=== PATIENT | male | born 2005 | race Caucasian/White ===

== ENCOUNTER 2025-05-20 16:50 | Inpatient (IN) | payer OTHER, SELFPAY ==
--- NOTE | ~2025-05-20 | XR_ITS ---
EXAMINATION: XR KNEE, RIGHT CLINICAL INFORMATION: Fall with pain COMPARISON: None available. TECHNIQUE: Two views of the right knee. FINDINGS: No fracture, dislocation, or suspicious bone lesion. There is normal alignment. Joint spaces are maintained. There is a suprapatellar joint effusion. Soft tissues appear normal. XR/XR knee RT 2V IMPRESSION: 1. No acute bony abnormalities. Suprapatellar joint effusion. Electronically signed by: Matthew Cary MD 05/21/2025 01:38 PM EDT
[2025-05-20 18:12] VITALS: BP 176/88; PULSE 110; RESP 16; TEMP 37.3; O2SAT 99
[2025-05-20 18:14] VITALS: BP 156/84
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
--- OUTSIDE RECORDS SUMMARY | 2025-05-20 19:35 | XMS_ITS | Clinical Summary ---
Author Organization [facility] 's Address [address] [place] [address] Care Team Providers Care Inspector Salvage Name Role Phone Cecilia Dunn MD Primary Care Provider Source Comments Please note that some or all of the patient's information could have additional privacy protections. State laws allow health care providers to render certain types of treatment to minors without parental consent. Please do not assume that this information can be shared solely by obtaining just the consent of the patient's parent/guardian. Please determine if all or part of the patient's care was rendered without parent/guardian involvement. And, if so, obtain the minor's consent prior to disclosure.[facility] Allergies No known active allergies Medications ibuprofen (MOTRIN) 400 MG tablet TAKE 1 TABLET BY MOUTH EVERY 6 HOURS NEEDED FOR MODERATE TO SEVERE PAIN, TAKE WITH FOOD 12/23/2020 Active Active Problems No known active problems Family History Medical History Relation Name Comments No Known Problems Father Diabetes type I Maternal Grandmother No Known Problems Mother Relation Name Status Comments Father Maternal Grandmother Mother Social History Tobacco Use Types Packs/Day Years Used Date Smoking Tobacco: Never Smokeless Tobacco: Never Other Needs Answer Date Recorded Anything else about your child you'd like help w ith? Not on file 04/12/2023 Share good news about positive changes: Not on f ile 04/12/2023 Sex and Gender Information Value Date Recorded Sex Assigned at Not on file Legal Sex Male 1:44 PM EST Gender Identity Not on file Sexual Orientation Not on file Last Filed Vital Signs Vital Sign Reading Time Taken Comments Blood Pressure 120/71 03/20/2021 12:00 PM EDT Pulse 72 03/20/2021 12:00 PM EDT Temperature - - Respiratory Rate - - Oxygen Saturation 96% 03/20/2021 12: 00 PM EDT Inhaled Oxygen Concentration - - Weight 72.9 kg (160 lb 11.5 oz) 021 12:00 PM EDT Height 172 cm (5' 7.72 ) 03/20/2021 12: 00 PM EDT Body Mass Index 24.64 03/20/2021 12:00 PM EDT Plan of Treatment Health Maintenance Due Date Last Done Comments DTaP/TDAP/TD VACCINES (1 - Tdap) 2012 ADOLESCENT HIV SCREENING 2018 COVID-19 Vaccine (2023-2 5 season) 2025 INFLUENZA (#1) 2025 NIRSEVIMAB VACCINES UNDER 8 MONTHS Aged Out No longer eligible based on patient's age to complete this topic Insurance [facility] MEDICAID Care Teams Inspector Salvage Relationship Specialty Start Date End Date Cecilia Dunn MD [facility] [place] [address] PCP - General 09/06/20
--- NOTE | 2025-05-21 | ECG_ITS ---
Test Reason : SYNCOPE Blood Pressure : */* mmHG Vent. Rate : 103 BPM Atrial Rate : 103 BPM P-R Int : 130 ms QRS Dur : 80 ms QT Int : 358 ms P-R-T Axes : 74 83 60 degrees QTcB Int : 468 ms Sinus tachycardia Otherwise normal ECG No previous ECGs available Referred By: Yudi Ibrahim Electronically Signed By: KOURTNEY BUCHANAN MD
[2025-05-21 06:16] VITALS: BP 138/93; PULSE 143; RESP 20; TEMP 36.3
[2025-05-21 06:31] VITALS: BP 131/79; PULSE 132; RESP 20; TEMP 36.7
[2025-05-21] MEDS: diazePAM 10 MG/2 ML CARTRIDGE 5 MG IM (06:37)
[2025-05-21 06:45] VITALS: BP 129/70; PULSE 137; RESP 20; TEMP 36.8
[2025-05-21 07:01] VITALS: BP 124/84; PULSE 132; RESP 18; TEMP 36.9; O2SAT 98
--- NOTE | 2025-05-21 07:21 | HO.PSYEVENT ---
Documented by User: Zenaida Castaneda APRN 05/21/25 07:24 Event Note Date of Service: 05/21/25 Psych Restraint Event Note: painter sign maintenance note: Notified by Lisa Grant RN that pt required restraint chair to maintain safety which was initiated at 0610. Medications were requested. Haldol 10 mg IM, Valium 5 mg IM and Diphenhydramine 50 mg IM ordered and administered per team at 0637 Time Spent With Patient Time: Total time managing care of this patient today ____ minutes. Documented by User: David Davies MD 05/23/25 15:53 Event Note Date of Service: 05/23/25
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
--- NOTE | 2025-05-21 08:14 | P.CONHOSP_ITS ---
History of Present Illness Data of Consult Service Date: 05/21/25 Primary Care Provider: Cecilia Dunn MD [facility] Reason for consult: Medical consult 20-year-old male with schizophrenia presented to the [facility] Emergency Department with his parents due to inability to care for himself paranoia, pressured speech and behavioral changes. Mild leukocytosis, no anemia, no electrolyte imbalances, TSH within normal limits. Tox screen positive for benzos, marijuana. EKG demonstrates sinus tachycardia with a right atrial enlargement. Patient required IM sedation due to agitated behavior in the ED at [facility]. Earlier this morning patient's agitated and required restraint chair for safety, he received Haldol 10 mg IM, Valium 5 mg IM and diphenhydramine 50 mg IM at 06:30 this morning. At time of exam he is sedated in bed. We will attempt to examine him when he is more alert. Review of Systems Review of Systems: Unable due to sedation PMFSH Social History Household Members: Family Housing: Apartment Do you presently have visiting nurse or other home services: No Patient Tobacco Use Status: Never used Tobacco Currently Displaying Signs/Symptoms of Drug Intoxication Withdrawal: No Have you been hit, kicked, punched, or otherwise hurt by someone within the past year? If so, by whom?: No Do you feel safe in your current relationship?: No Current Relationship Is there a partner from a previous relationship who is making you feel unsafe now?: No Are you made to feel afraid or neglected: No Advance Directives: No Advance Directives Information Provided: No Do you have thoughts of harming others: None Do you have a plan to hurt others: No Plan Recently lost weight without trying: No Eating poorly because of decreased appetite: No Nutrition Risks: No Nutritional Risk Poor oral hygiene: No service: No Sexual orientation: Straight/Heterosexual Meds Allergies Allergy/AdvReac Type Severity Reaction Status Date / Time Unable to Assess Allergy Verified 05/20/25 19:43 Active Medications: Current Medications Acetaminophen (Acetaminophen 325 Mg Tablet) 650 mg PO Q6H PRN PRN Reason: Headache/Pain, Scale 1-10 Al Hydroxide/Mg Hydroxide (Magnesium Hydrox/Alum Hydrox 30 Ml Oral.Susp) 30 ml PO Q6H PRN PRN Reason: Heartburn/Nausea Hydroxyzine HCl (Hydroxyzine Hcl 25 Mg Tablet) 25 mg PO Q6H PRN PRN Reason: mild anxiety Magnesium Hydroxide (Milk Of Magnesia 30 Ml Oral.Susp) 30 ml PO DAILY PRN PRN Reason: Constipation Trazodone HCl (Trazodone Hcl 50 Mg Tablet) 50 mg PO BEDTIME MRX1 PRN PRN Reason: Insomnia Home Medications ?Medication ?Instructions ?Recorded ?Confirmed ?Last Taken ?Type No Known Home Meds 05/20/25 05/20/25 Un known History Physical Exam Vital Signs and Narrative: Vital Signs: Last Vital Signs Temp 98.4 F 05/21/25 07:01 Pulse 132 H 05/21/25 07:01 Resp 18 05/21/25 07:01 BP 124/84 05/21/25 07:01 Pulse Ox 99 05/20/25 18:12 O2 Del Method Room Air 05/20/25 18:12 CONST: Sedated in NAD. Well nourished HEENT: Normocephalic, atraumatic RESP: Respiratory rate even and regular HEART: Regular rate and rhythm GI: Not performed : Not performed SKIN: Color within normal limits, no visible lesions or rashes NEURO: Sedated PSYCH: Sedated Assessment and Plan (1) Schizophrenia: Status: Acute Plan 20-year-old with past medical history of schizophrenia who presented to the ED via EMS for worsening behaviors including paranoia and poor sleep. Admitted for further care Schizophrenia with decompensation Treatment per psychiatric team Right atrial enlargement noted on EKG at outside hospital/tachycardia Echo ordered to evaluate Patient agitated at recording of last vital signs Thank you for allowing me to participate in the care of this patient. Will follow with you, please notify medical provider with any changes in condition or concerns.
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
[2025-05-21 12:15] VITALS: BP 143/76; PULSE 117; RESP 18
--- NOTE | 2025-05-21 14:45 | PM.EVENT ---
Event Note Date of Service: 05/21/25 Event Note: Notified by nursing that patient reported that his right leg gave out. Fell to the ground witnessed by nursing. Vitals were stable at the time. On exam his right knee is slightly swollen and bruised suprapatellar region. At the time of exam patient denies any pain. Right knee is in alignment, his gait is steady. No tenderness with palpation at the meniscus, patellar tendon, tibial tuberosity or medial or lateral knee. Full range of motion. X-ray negative for any fracture, joint effusion noted that suprapatellar area. Suspect that patient may have passed out per nursing parts department supervisor. We will order EKG to rule out any abnormalities, CBC and BMP. On exam patient denies any dizziness, headaches, denies head strike, denies chest pain, shortness of breath or any other concerning symptoms. Offer Tylenol as needed ice p.r.n. continue to monitor and notify medical team with any changes. Time Spent With Patient Time: Total time managing care of this patient today ____ minutes.
[2025-05-21 17:52] LABS: MANUAL DIFF FLAG NO
[2025-05-21 17:54] LABS: Hematocrit 44.5 % (42.0-52.0); Hemoglobin 15.4 g/dl (14.0-18.0); Imm Gran Abs Auto 0.05 X10*3/uL (0.00-0.03); Imm Gran Pct Auto 0.4 % (0.0-0.4); Lymphocytes Absolute Auto 3.7 X10*3/uL (1.2-4.9); Mean Corpuscular HGB Conc 34.6 g/dl (31.0-36.0); Mean Corpuscular Hemoglobin 29.4 pg (27.0-33.0); Mean Corpuscular Volume 85.1 fL (80.0-98.0); NRBC Abs Auto 0.000 X10*3/uL (0.0-0.012); NRBC Pct Auto 0.0 /100WBC (0.0-0.2); Platelet Count 249 X10*3/uL (160-400); Red Blood Count 5.23 X10*6/uL (4.60-5.80); White Blood Count 14.3 X10*3/uL (4.8-10.8)
[2025-05-21 18:13] LABS: Alanine Aminotransferase 30 U/L (0-40); Albumin Level 5.1 g/dL (3.5-5.0); Alkaline Phosphatase 63 U/L (39-117); Anion Gap 15 (12-20); Aspartate Amino Transferase 63 U/L (5-37); Blood Urea Nitrogen 14 mg/dL (9-16); Calcium 9.7 mg/dL (8.4-10.2); Carbon Dioxide 28 mmol/L (22-29); Chloride 103 mmol/L (96-108); Estimated Glomerular Filt Rate > 60; Potassium 3.8 mmol/L (3.3-5.1); Sodium 142 mmol/L (135-145); Total Protein 8.3 g/dL (6.5-8.0)
[2025-05-21 18:21] LABS: Cholesterol 171 mg/dL (<200); HDL Cholesterol 32 mg/dL (>40); Magnesium 2.4 mg/dL (1.6-2.6); Triglycerides 124 mg/dL (<150)
[2025-05-21 18:35] LABS: Free T4 (Free Thyroxine) 1.37 ng/dL (0.71-1.85); Thyroid Stimulating Hormone 1.52 uIU/mL (0.32-4.0)
[2025-05-21 18:54] LABS: Folate 10.9 ng/mL (> or = 4.0); Vitamin B12 335 pg/mL (200-900)
[2025-05-21 19:22] VITALS: BP 138/85; PULSE 113; RESP 16; TEMP 36.1; O2SAT 100
--- NOTE | 2025-05-22 04:59 | P.F2F_ITS ---
Service Date Service Date: 05/22/25 Encounter Date of encounter: 05/21/25 (6:15am) Encounter: Patient was agitated. Patient was placed on physical restraints. On examination patient denies any complaints. Physical exam benign. Patient was examined at 06:15am Reasons for Services Signs and symptoms assessed: Patient is asymptomatic. Sitting in the chair restrained. Calm and cooperative. Denies any physical complaints. Homebound: Leaving the home is medically contraindicated at this time without the asist of a device and/or another person due th the listed conditions above and below. Reason homebound: other Certification: Based on the above findings, I certify that this patient is confined to the home and needs intermittent shelter care, physical therapy and/or speech therapy, or continues to need occupational therapy. The patient is under my care, and I have initiated the establishment of the plan of care. The patient will be followed by a physician who will periodically review the plan of care. Time Spent With Patient Time: Total time managing care of this patient today ____ minutes.
[2025-05-22 08:00] VITALS: BP 138/88; PULSE 99; RESP 18; TEMP 36.9; O2SAT 98
--- NOTE | 2025-05-22 15:16 | HO.PSYCHPN ---
Subjective Subjective Date of Service: 05/22/25 Reason For Visit: schizophrenia Subjective Notes: Conditional Voluntary Interim History: Refused Depakote last night. Continues with rapid and pressured speech. He reports feeling anxious. Per nursing, slept 3 hours last night. Encouraged to be medication compliant. denies SI/HI/VH/AH. Continue tx plan. Medication Compliance: No Side effects from medications: No Attending Groups: Intermittent Mental Status Exam Mental Status Exam Narrative: Pt is alert and oriented; behavior is cooperative and calm; dressed in casual attire; mood is described as anxious ; eye contact appropriate; Speech is rapid rate, normal volume and pressured; thought process is organized; Thought content is on tx; paranoid; denies SI/HI/VH/AH. Diagnostics Vital Signs (24Hr): Vital Signs - 24 hr 05/21/25 19:22 05/22/25 08:00 Temperature 97.0 F 98.5 F Pulse Rate 113 H 99 Respiratory Rate 16 18 Blood Pressure 138/85 138/88 Pulse Oximetry 100 98 Oxygen Delivery Method Room Air Room Air Labs 05/21/25 17:43 05/21/25 17:43 Labs: Laboratory Results - last 48 hr 05/21/25 17:43 WBC 14.3 H RBC 5.23 Hgb 15.4 Hct 44.5 MCV 85.1 MCH 29.4 MCHC 34.6 RDW 12.5 Plt Count 249 MPV 11.5 Immature Gran % (Auto) 0.4 Neut % (Auto) 65.1 Lymph % (Auto) 25.6 Mchenry % (Auto) 7.5 Eos % (Auto) 1.0 Baso % (Auto) 0.4 Lymph # (Auto) 3.7 Mchenry # (Auto) 1.1 Eos # (Auto) 0.1 Baso # (Auto) 0.1 Abs Immat Gran (auto) 0.05 H Absolute Neuts (auto) 9.3 H Absolute Nucleated RBC 0.000 Nucleated RBC % (auto) 0.0 Sodium 142 Potassium 3.8 Chloride 103 Carbon Dioxide 28 Anion Gap 15 BUN 14 Creatinine 1.29 Estim Creat Clear Calc TNP Estimated GFR > 60 Random Glucose 75 Estimat Average Glucose 94 Hemoglobin A1c % 4.9 Calcium 9.7 Magnesium 2.4 Total Bilirubin 0.9 AST 63 H ALT 30 Alkaline Phosphatase 63 Total Protein 8.3 H Albumin 5.1 H Triglycerides 124 Cholesterol 171 LDL Cholesterol, Calc 115 H HDL Cholesterol 32 L Vitamin B12 335 Folate 10.9 TSH 1.52 Free T4 1.37 Imaging Radiology Impressions: ITS Impressions Knee X-Ray 05/21/25 13:15 IMPRESSION: 1. No acute bony abnormalities. Suprapatellar joint effusion. Electronically signed by: Matthew Cary MD 05/21/2025 01:38 PM EDT RP Medications Medications Current Medications Acetaminophen (Acetaminophen 325 Mg Tablet) 650 mg PO Q6H PRN PRN Reason: Headache/Pain, Scale 1-10 Last Admin: 05/22/25 03:40 Dose: 650 mg Al Hydroxide/Mg Hydroxide (Magnesium Hydrox/Alum Hydrox 30 Ml Oral.Susp) 30 ml PO Q6H PRN PRN Reason: Heartburn/Nausea Divalproex Sodium (Divalproex Sodium Er 500 Mg Tab.Er.24h) 500 mg PO BEDTIME ANJEL Last Admin: 05/21/25 22:46 Dose: Not Given Hydroxyzine HCl (Hydroxyzine Hcl 25 Mg Tablet) 25 mg PO Q6H PRN PRN Reason: mild anxiety Last Admin: 05/21/25 12:34 Dose: 25 mg Lorazepam (Lorazepam 1 Mg Tablet) 1 mg PO TID PRN PRN Reason: Anxiety Last Admin: 05/21/25 12:34 Dose: 1 mg Magnesium Hydroxide (Milk Of Magnesia 30 Ml Oral.Susp) 30 ml PO DAILY PRN PRN Reason: Constipation Olanzapine (Olanzapine 5 Mg Tablet) 5 mg PO Q4H PRN PRN Reason: agitation Trazodone HCl (Trazodone Hcl 50 Mg Tablet) 50 mg PO BEDTIME MRX1 PRN PRN Reason: Insomnia Allergies Allergies Allergy/AdvReac Type Severity Reaction Status Date / Time Unable to Assess Allergy Verified 05/20/25 19:43 Assessment & Plan Assessment & Plan (1) Brief psychotic disorder: Status: Acute Code(s): F23 - Brief psychotic disorder Plan Patient is a 20-year-old male with no psychiatric hx, who presented to ER with his parents, due to inability to care for self, poor sleep, and increased paranoia. Plan: CV 15 minute safety checks Obtain collateral Start: Depakote ER 500mg PO bedtime Encourage groups Referral to outpatient psychiatric providers Discharge planning 05/22: Refused Depakote last night. Continues with rapid and pressured speech. He reports feeling anxious. Per nursing, slept 3 hours last night. Encouraged to be medication compliant. denies SI/HI/VH/AH. Continue tx plan. Patient educated on: diagnosis and medication risk/benefits Reason for continued inpatient stay Substantial Risk for: med/psych decompensation Time Spent With Patient Time: Total time managing care of this patient today _15___ minutes.
--- NOTE | 2025-05-22 17:13 | PC.NURSE ---
Pt signed a Three Day Notice on Saturday05/22/2025 up on Saturday05/26/2025.
[2025-05-22 19:42] VITALS: BP 161/85; PULSE 105; RESP 16; TEMP 37.8; O2SAT 91
[2025-05-22 22:00] VITALS: TEMP 36.7
[2025-05-23 08:00] VITALS: BP 153/99; PULSE 117; RESP 18; TEMP 36.7; O2SAT 99
[2025-05-23 08:31] VITALS: BP 153/99; PULSE 117; RESP 18; TEMP 36.7; O2SAT 99
--- NOTE | 2025-05-23 13:00 | P.PNPSI_ITS ---
Subjective Subjective Date of Service: 05/23/25 Reason For Visit: schizophrenia Subjective Notes: 3 Day Interim History: Active on unit. anxious. rapid speech. observed walking back and forth in small area. ambivalent about sitting in chair, then proceeds to almost sit in chair then gets up. medication compliant. showered. Patient reports he is no longer worried someone will kill me . denies SI/HI/VH/AH. 3 day up on 05/26/25. Start: Risperdal 1mg PO BID propranolol 10mg PO BID depakote ER increased to 1000mg PO daily Medication Compliance: Yes Side effects from medications: No Attending Groups: Yes Mental Status Exam Mental Status Exam Narrative: Pt is alert and oriented; behavior is cooperative; dressed in casual attire; mood is described as anxious ; eye contact appropriate; Speech is rapid rate, normal volume and pressured; thought process is organized; Thought content is on tx; denies SI/HI/VH/AH. Diagnostics Vital Signs (24Hr): Vital Signs - 24 hr 05/22/25 19:42 05/22/25 22:00 05/23/25 08:00 Temperature 100.1 F 98.1 F 98.1 F Pulse Rate 105 H 117 H Respiratory Rate 16 18 Blood Pressure 161/85 H 153/99 H Pulse Oximetry 91 L 99 Oxygen Delivery Method Room Air Room Air 05/23/25 08:31 Temperature 98.1 F Pulse Rate 117 H Respiratory Rate 18 Blood Pressure 153/99 H Pulse Oximetry 99 Oxygen Delivery Method Room Air Labs 05/21/25 17:43 05/21/25 17:43 Labs: Laboratory Results - last 48 hr 05/21/25 17:43 WBC 14.3 H RBC 5.23 Hgb 15.4 Hct 44.5 MCV 85.1 MCH 29.4 MCHC 34.6 RDW 12.5 Plt Count 249 MPV 11.5 Immature Gran % (Auto) 0.4 Neut % (Auto) 65.1 Lymph % (Auto) 25.6 [place] % (Auto) 7.5 Eos % (Auto) 1.0 Baso % (Auto) 0.4 Lymph # (Auto) 3.7 [place] # (Auto) 1.1 Eos # (Auto) 0.1 Baso # (Auto) 0.1 Abs Immat Gran (auto) 0.05 H Absolute Neuts (auto) 9.3 H Absolute Nucleated RBC 0.000 Nucleated RBC % (auto) 0.0 Sodium 142 Potassium 3.8 Chloride 103 Carbon Dioxide 28 Anion Gap 15 BUN 14 Creatinine 1.29 Estim Creat Clear Calc TNP Estimated GFR > 60 Random Glucose 75 Estimat Average Glucose 94 Hemoglobin A1c % 4.9 Calcium 9.7 Magnesium 2.4 Total Bilirubin 0.9 AST 63 H ALT 30 Alkaline Phosphatase 63 Total Protein 8.3 H Albumin 5.1 H Triglycerides 124 Cholesterol 171 LDL Cholesterol, Calc 115 H HDL Cholesterol 32 L Vitamin B12 335 Folate 10.9 TSH 1.52 Free T4 1.37 Imaging Radiology Impressions: ITS Impressions Knee X-Ray 05/21/25 13:15 IMPRESSION: 1. No acute bony abnormalities. Suprapatellar joint effusion. Electronically signed by: Matthew Cary MD 05/21/2025 01:38 PM EDT RP Medications Medications Current Medications Acetaminophen (Acetaminophen 325 Mg Tablet) 650 mg PO Q6H PRN PRN Reason: Headache/Pain, Scale 1-10 Last Admin: 05/22/25 03:40 Dose: 650 mg Al Hydroxide/Mg Hydroxide (Magnesium Hydrox/Alum Hydrox 30 Ml Oral.Susp) 30 ml PO Q6H PRN PRN Reason: Heartburn/Nausea Divalproex Sodium (Divalproex Sodium Er 500 Mg Tab.Er.24h) 500 mg PO DAILY ANJEL Last Admin: 05/23/25 08:37 Dose: 500 mg Hydroxyzine HCl (Hydroxyzine Hcl 25 Mg Tablet) 25 mg PO Q6H PRN PRN Reason: mild anxiety Last Admin: 05/21/25 12:34 Dose: 25 mg Lorazepam (Lorazepam 1 Mg Tablet) 1 mg PO TID PRN PRN Reason: Anxiety Last Admin: 05/23/25 10:42 Dose: 1 mg Magnesium Hydroxide (Milk Of Magnesia 30 Ml Oral.Susp) 30 ml PO DAILY PRN PRN Reason: Constipation Olanzapine (Olanzapine 5 Mg Tablet) 5 mg PO Q4H PRN PRN Reason: agitation Last Admin: 05/23/25 10:16 Dose: 5 mg Trazodone HCl (Trazodone Hcl 50 Mg Tablet) 50 mg PO BEDTIME MRX1 PRN PRN Reason: Insomnia Allergies Allergies Allergy/AdvReac Type Severity Reaction Status Date / Time Unable to Assess Allergy Verified 05/20/25 19:43 Assessment & Plan Assessment & Plan (1) Brief psychotic disorder: Status: Acute Code(s): F23 - Brief psychotic disorder Plan Patient is a 20-year-old male with no psychiatric hx, who presented to ER with his parents, due to inability to care for self, poor sleep, and increased paranoia. Plan: CV 15 minute safety checks Obtain collateral Start: Depakote ER 500mg PO bedtime Encourage groups Referral to outpatient psychiatric providers Discharge planning 05/22: Refused Depakote last night. Continues with rapid and pressured speech. He reports feeling anxious. Per nursing, slept 3 hours last night. Encouraged to be medication compliant. denies SI/HI/VH/AH. Continue tx plan. 05/23: Active on unit. anxious. rapid speech. observed walking back and forth in small area. ambivalent about sitting in chair, then proceeds to almost sit in chair then gets up. medication compliant. showered. Patient reports he is no longer worried someone will kill me . denies SI/HI/VH/AH. Took Depakote yesterday and this morning. Start: Risperdal 1mg PO BID propranolol 10mg PO BID depakote ER increased to 1000mg PO daily Patient educated on: diagnosis and medication risk/benefits Reason for continued inpatient stay Substantial Risk for: med/psych decompensation Time Spent With Patient Time: Total time managing care of this patient today _20___ minutes.
[2025-05-23 20:20] VITALS: BP 141/84; PULSE 104; RESP 18; TEMP 37.3; O2SAT 100
[2025-05-24 08:08] VITALS: BP 136/85; PULSE 90; RESP 20; TEMP 36.3; O2SAT 98
--- NOTE | 2025-05-24 10:03 | HO.PSYCHPN ---
Subjective Subjective Date of Service: 05/24/25 Reason For Visit: schizophrenia Subjective Notes: 3 Day Interim History: Active on unit. social with peers. Continues anxious. polite. Patient reports feeling safe here . Patient requested for T/W to be with him when he takes his morning medication. Patient medication compliant. denies SI/HI/VH/AH. Patient did not make any paranoid statements during assessment. 3 day up on 05/26/25. Continue tx plan. Medication Compliance: Yes Side effects from medications: No Attending Groups: Yes Mental Status Exam Mental Status Exam Narrative: Pt is alert and oriented; behavior is cooperative and calm; dressed in casual attire; mood is described as anxious ; eye contact appropriate; Speech is rapid rate, normal volume and pressured; thought process is organized; Thought content is on tx; denies SI/HI/VH/AH. Diagnostics Vital Signs (24Hr): Vital Signs - 24 hr 05/23/25 20:20 05/24/25 08:08 Temperature 99.2 F 97.4 F Pulse Rate 104 H 90 Respiratory Rate 18 20 Blood Pressure 141/84 H 136/85 Pulse Oximetry 100 98 Oxygen Delivery Method Room Air Room Air Labs 05/21/25 17:43 05/21/25 17:43 Imaging Radiology Impressions: ITS Impressions Knee X-Ray 05/21/25 13:15 IMPRESSION: 1. No acute bony abnormalities. Suprapatellar joint effusion. Electronically signed by: Matthew Cary MD 05/21/2025 01:38 PM EDT RP Medications Medications Current Medications Acetaminophen (Acetaminophen 325 Mg Tablet) 650 mg PO Q6H PRN PRN Reason: Headache/Pain, Scale 1-10 Last Admin: 05/23/25 21:00 Dose: 650 mg Al Hydroxide/Mg Hydroxide (Magnesium Hydrox/Alum Hydrox 30 Ml Oral.Susp) 30 ml PO Q6H PRN PRN Reason: Heartburn/Nausea Divalproex Sodium (Divalproex Sodium Er 500 Mg Tab.Er.24h) 1,000 mg PO DAILY ANJEL Hydroxyzine HCl (Hydroxyzine Hcl 25 Mg Tablet) 25 mg PO Q6H PRN PRN Reason: mild anxiety Last Admin: 05/21/25 12:34 Dose: 25 mg Lorazepam (Lorazepam 1 Mg Tablet) 1 mg PO TID PRN PRN Reason: Anxiety Last Admin: 05/23/25 20:36 Dose: 1 mg Magnesium Hydroxide (Milk Of Magnesia 30 Ml Oral.Susp) 30 ml PO DAILY PRN PRN Reason: Constipation Propranolol HCl (Propranolol Hcl 10 Mg Tablet) 10 mg PO BID ANJEL; Protocol Last Admin: 05/23/25 20:36 Dose: 10 mg Risperidone (Risperidone 1 Mg Tablet) 1 mg PO BID ANJEL Last Admin: 05/23/25 20:37 Dose: 1 mg Trazodone HCl (Trazodone Hcl 50 Mg Tablet) 50 mg PO BEDTIME MRX1 PRN PRN Reason: Insomnia Allergies Allergies Allergy/AdvReac Type Severity Reaction Status Date / Time Unable to Assess Allergy Verified 05/20/25 19:43 Assessment & Plan Assessment & Plan (1) Brief psychotic disorder: Status: Acute Code(s): F23 - Brief psychotic disorder Plan Patient is a 20-year-old male with no psychiatric hx, who presented to ER with his parents, due to inability to care for self, poor sleep, and increased paranoia. Plan: CV 15 minute safety checks Obtain collateral Start: Depakote ER 500mg PO bedtime Encourage groups Referral to outpatient psychiatric providers Discharge planning 05/22: Refused Depakote last night. Continues with rapid and pressured speech. He reports feeling anxious. Per nursing, slept 3 hours last night. Encouraged to be medication compliant. denies SI/HI/VH/AH. Continue tx plan. 05/23: Active on unit. anxious. rapid speech. observed walking back and forth in small area. ambivalent about sitting in chair, then proceeds to almost sit in chair then gets up. medication compliant. showered. Patient reports he is no longer worried someone will kill me . denies SI/HI/VH/AH. Took Depakote yesterday and this morning. Start: Risperdal 1mg PO BID propranolol 10mg PO BID depakote ER increased to 1000mg PO daily 05/24: Active on unit. social with peers. Continues anxious. polite. Patient reports feeling safe here . Patient requested for T/W to be with him when he takes his morning medication. Patient medication compliant. denies SI/HI/VH/AH. Patient did not make any paranoid statements during assessment. 3 day up on 05/26/25. Continue tx plan. Patient educated on: diagnosis, medication risk/benefits and therapeutic strategies Reason for continued inpatient stay Substantial Risk for: med/psych decompensation Time Spent With Patient Time: Total time managing care of this patient today _20___ minutes.
[2025-05-24 10:22] VITALS: BP 151/91; PULSE 113
[2025-05-24 12:54] VITALS: TEMP 36.3
[2025-05-24 20:00] VITALS: BP 180/92; PULSE 93
[2025-05-25 07:20] VITALS: BP 160/85; PULSE 94; RESP 16; TEMP 36.3; O2SAT 100
--- NOTE | 2025-05-25 09:26 | HO.PSYCHPN ---
Subjective Subjective Date of Service: 05/25/25 Reason For Visit: schizophrenia Subjective Notes: Conditional Voluntary Interim History: Patient retracted 3 day notice. Patient reports he feeling he is getting better ; pt stated, I'm taking my medication. I feel normal. I'm not worried about anyone killing me . Discussed need for Depakote level on ; pt agreed to stay until for lab draw. denies SI/HI/VH/AH. Valproic acid level to be drawn 05/27/25. Patient requesting to be discharged after lab draw. Medication Compliance: Yes Side effects from medications: No Attending Groups: Yes Mental Status Exam Mental Status Exam Narrative: Pt is alert and oriented; behavior is cooperative and calm; dressed in casual attire; mood is described as anxious ; eye contact appropriate; Speech is rapid rate, normal volume and pressured; thought process is organized; Thought content is on tx/discharge; denies SI/HI/VH/AH. Diagnostics Vital Signs (24Hr): Vital Signs - 24 hr 05/24/25 10:22 05/24/25 12:54 05/24/25 20:00 Temperature 97.4 F Pulse Rate 113 H 93 Respiratory Rate Blood Pressure 151/91 H 180/92 H Pulse Oximetry Oxygen Delivery Method 05/25/25 07:20 Temperature 97.4 F Pulse Rate 94 Respiratory Rate 16 Blood Pressure 160/85 H Pulse Oximetry 100 Oxygen Delivery Method Room Air Labs 05/21/25 17:43 05/21/25 17:43 Imaging Radiology Impressions: ITS Impressions Knee X-Ray 05/21/25 13:15 IMPRESSION: 1. No acute bony abnormalities. Suprapatellar joint effusion. Electronically signed by: Matthew Cary MD 05/21/2025 01:38 PM EDT Medications Medications Current Medications Acetaminophen (Acetaminophen 325 Mg Tablet) 650 mg PO Q6H PRN PRN Reason: Headache/Pain, Scale 1-10 Last Admin: 05/24/25 10:33 Dose: 650 mg Al Hydroxide/Mg Hydroxide (Magnesium Hydrox/Alum Hydrox 30 Ml Oral.Susp) 30 ml PO Q6H PRN PRN Reason: Heartburn/Nausea Divalproex Sodium (Divalproex Sodium Er 500 Mg Tab.Er.24h) 1,000 mg PO DAILY ANJEL Last Admin: 05/25/25 08:29 Dose: 1,000 mg Lorazepam (Lorazepam 0.5 Mg Tablet) 0.5 mg PO BID PRN PRN Reason: Anxiety Last Admin: 05/24/25 20:53 Dose: 0.5 mg Magnesium Hydroxide (Milk Of Magnesia 30 Ml Oral.Susp) 30 ml PO DAILY PRN PRN Reason: Constipation Propranolol HCl (Propranolol Hcl 10 Mg Tablet) 10 mg PO BID ANJEL; Protocol Last Admin: 05/25/25 08:30 Dose: 10 mg Risperidone (Risperidone 1 Mg Tablet) 1 mg PO BID ANJEL Last Admin: 05/25/25 08:30 Dose: 1 mg Trazodone HCl (Trazodone Hcl 50 Mg Tablet) 50 mg PO BEDTIME MRX1 PRN PRN Reason: Insomnia Allergies Allergies Allergy/AdvReac Type Severity Reaction Status Date / Time Unable to Assess Allergy Verified 05/20/25 19:43 Assessment & Plan Assessment & Plan (1) Brief psychotic disorder: Status: Acute Code(s): F23 - Brief psychotic disorder Plan Patient is a 20-year-old male with no psychiatric hx, who presented to ER with his parents, due to inability to care for self, poor sleep, and increased paranoia. Plan: CV 15 minute safety checks Obtain collateral Start: Depakote ER 500mg PO bedtime Encourage groups Referral to outpatient psychiatric providers Discharge planning 05/22: Refused Depakote last night. Continues with rapid and pressured speech. He reports feeling anxious. Per nursing, slept 3 hours last night. Encouraged to be medication compliant. denies SI/HI/VH/AH. Continue tx plan. 05/23: Active on unit. anxious. rapid speech. observed walking back and forth in small area. ambivalent about sitting in chair, then proceeds to almost sit in chair then gets up. medication compliant. showered. Patient reports he is no longer worried someone will kill me . denies SI/HI/VH/AH. Took Depakote yesterday and this morning. Start: Risperdal 1mg PO BID propranolol 10mg PO BID depakote ER increased to 1000mg PO daily 05/24: Active on unit. social with peers. Continues anxious. polite. Patient reports feeling safe here . Patient requested for T/W to be with him when he takes his morning medication. Patient medication compliant. denies SI/HI/VH/AH. Patient did not make any paranoid statements during assessment. 3 day up on 05/26/25. Continue tx plan. 05/25: Patient retracted 3 day notice. Patient reports he feeling he is getting better ; pt stated, I'm taking my medication. I feel normal. I'm not worried about anyone killing me . Discussed need for Depakote level on ; pt agreed to stay until for lab draw. denies SI/HI/VH/AH. Valproic acid level to be drawn 05/27/25. Patient requesting to be discharged after lab draw. Patient educated on: diagnosis and medication risk/benefits Reason for continued inpatient stay Substantial Risk for: med/psych decompensation Time Spent With Patient Time: Total time managing care of this patient today _20___ minutes.
[2025-05-25 20:07] VITALS: BP 150/76; PULSE 111; RESP 18; TEMP 37.1; O2SAT 100
[2025-05-25 21:03] VITALS: BP 150/76; PULSE 111
[2025-05-26 08:00] VITALS: BP 137/91; PULSE 100; RESP 20; TEMP 36.7; O2SAT 99
[2025-05-26 08:19] VITALS: BP 137/91; PULSE 100; RESP 20; TEMP 36.7; O2SAT 99
--- NOTE | 2025-05-26 09:04 | HO.PSYCHPN ---
Subjective Subjective Date of Service: 05/26/25 Reason For Visit: schizophrenia Subjective Notes: Conditional Voluntary Interim History: Active on unit. social with peers. attending groups. medication compliant. Patient reports feeling good ; pt stated, I feel better. I want to go home and be with my family . denies SI/HI/VH/AH. Patient did not make any paranoid statements. Depakote level to be drawn tomorrow morning. continue tx plan. Medication Compliance: Yes Side effects from medications: No Attending Groups: Yes Mental Status Exam Mental Status Exam Narrative: Pt is alert and oriented; behavior is cooperative and calm; dressed in casual attire; mood is described as good ; eye contact appropriate; Speech is rapid rate, normal volume and pressured; thought process is organized; Thought content is on discharge; denies SI/HI/VH/AH. Diagnostics Vital Signs (24Hr): Vital Signs - 24 hr 05/25/25 20:07 05/25/25 21:03 05/26/25 08:00 Temperature 98.7 F 98.1 F Pulse Rate 111 H 111 H 100 Respiratory Rate 18 20 Blood Pressure 150/76 H 150/76 H 137/91 H Pulse Oximetry 100 99 Oxygen Delivery Method Room Air Room Air 05/26/25 08:19 Temperature 98.1 F Pulse Rate 100 Respiratory Rate 20 Blood Pressure 137/91 H Pulse Oximetry 99 Oxygen Delivery Method Room Air Labs 05/21/25 17:43 05/21/25 17:43 Imaging Radiology Impressions: ITS Impressions Knee X-Ray 05/21/25 13:15 IMPRESSION: 1. No acute bony abnormalities. Suprapatellar joint effusion. Electronically signed by: Matthew Cary MD 05/21/2025 01:38 PM EDT Medications Medications Current Medications Acetaminophen (Acetaminophen 325 Mg Tablet) 650 mg PO Q6H PRN PRN Reason: Headache/Pain, Scale 1-10 Last Admin: 05/24/25 10:33 Dose: 650 mg Al Hydroxide/Mg Hydroxide (Magnesium Hydrox/Alum Hydrox 30 Ml Oral.Susp) 30 ml PO Q6H PRN PRN Reason: Heartburn/Nausea Divalproex Sodium (Divalproex Sodium Er 500 Mg Tab.Er.24h) 1,000 mg PO DAILY ANJEL Last Admin: 05/26/25 08:22 Dose: 1,000 mg Lorazepam (Lorazepam 0.5 Mg Tablet) 0.5 mg PO BID PRN PRN Reason: Anxiety Last Admin: 05/25/25 21:03 Dose: 0.5 mg Magnesium Hydroxide (Milk Of Magnesia 30 Ml Oral.Susp) 30 ml PO DAILY PRN PRN Reason: Constipation Propranolol HCl (Propranolol Hcl 10 Mg Tablet) 10 mg PO BID ANJEL; Protocol Last Admin: 05/26/25 08:22 Dose: 10 mg Risperidone (Risperidone 1 Mg Tablet) 1 mg PO BID ANJEL Last Admin: 05/26/25 08:22 Dose: 1 mg Trazodone HCl (Trazodone Hcl 50 Mg Tablet) 50 mg PO BEDTIME MRX1 PRN PRN Reason: Insomnia Allergies Allergies Allergy/AdvReac Type Severity Reaction Status Date / Time Unable to Assess Allergy Verified 05/20/25 19:43 Assessment & Plan Assessment & Plan (1) Brief psychotic disorder: Status: Acute Code(s): F23 - Brief psychotic disorder Plan Patient is a 20-year-old male with no psychiatric hx, who presented to ER with his parents, due to inability to care for self, poor sleep, and increased paranoia. Plan: CV 15 minute safety checks Obtain collateral Start: Depakote ER 500mg PO bedtime Encourage groups Referral to outpatient psychiatric providers Discharge planning 05/22: Refused Depakote last night. Continues with rapid and pressured speech. He reports feeling anxious. Per nursing, slept 3 hours last night. Encouraged to be medication compliant. denies SI/HI/VH/AH. Continue tx plan. 05/23: Active on unit. anxious. rapid speech. observed walking back and forth in small area. ambivalent about sitting in chair, then proceeds to almost sit in chair then gets up. medication compliant. showered. Patient reports he is no longer worried someone will kill me . denies SI/HI/VH/AH. Took Depakote yesterday and this morning. Start: Risperdal 1mg PO BID propranolol 10mg PO BID depakote ER increased to 1000mg PO daily 05/24: Active on unit. social with peers. Continues anxious. polite. Patient reports feeling safe here . Patient requested for T/W to be with him when he takes his morning medication. Patient medication compliant. denies SI/HI/VH/AH. Patient did not make any paranoid statements during assessment. 3 day up on 05/26/25. Continue tx plan. 05/25: Patient retracted 3 day notice. Patient reports he feeling he is getting better ; pt stated, I'm taking my medication. I feel normal. I'm not worried about anyone killing me . Discussed need for Depakote level on ; pt agreed to stay until for lab draw. denies SI/HI/VH/AH. Valproic acid level to be drawn 05/27/25. Patient requesting to be discharged after lab draw. 05/26: Active on unit. social with peers. attending groups. medication compliant. Patient reports feeling good ; pt stated, I feel better. I want to go home and be with my family . denies SI/HI/VH/AH. Patient did not make any paranoid statements. Depakote level to be drawn tomorrow morning. continue tx plan. Patient educated on: diagnosis, medication risk/benefits and therapeutic strategies Reason for continued inpatient stay Substantial Risk for: stable for discharge Time Spent With Patient Time: Total time managing care of this patient today _20___ minutes.
[2025-05-26 20:00] VITALS: BP 143/86; PULSE 125; RESP 18; TEMP 36.9; O2SAT 99
[2025-05-26 20:36] VITALS: BP 143/86; PULSE 125
[2025-05-27 07:00] VITALS: BMI 21.7
[2025-05-27 08:00] VITALS: BP 140/81; PULSE 120; RESP 16; TEMP 36.8; O2SAT 99
[2025-05-27 08:11] LABS: Ammonia 23 umol/L (13-55)
[2025-05-27 08:14] LABS: Alanine Aminotransferase 21 U/L (0-40); Albumin Level 4.9 g/dL (3.5-5.0); Alkaline Phosphatase 58 U/L (39-117); Aspartate Amino Transferase 19 U/L (5-37); Total Protein 7.9 g/dL (6.5-8.0)
[2025-05-27 09:04] VITALS: BP 140/81; PULSE 120
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
== END 2025-05-27 12:05 | disposition home or self-care (01) | DRG 750 ==
PROVIDERS: Clinical Nurse Specialist Psychiatric/Mental Health, Adult; Nurse Practitioner Family; Admitting Provider Psychiatry & Neurology Psychiatry; PCP Pediatrics; Responsible Provider Registered Nurse; Visit Provider Psychiatry & Neurology Psychiatry
DX: F20.9 Schizophrenia, unspecified (principal); Z79.899 Other long term (current) drug therapy
CPT/HCPCS: 36415; 73560; 80053; 80061; 80076; 80164; 82140; 82607; 82746; 83036; 83735; 84439; 84443; 85025; 93005; J1200; J1630; J3360

== ENCOUNTER 2025-05-20 16:50 | Outpatient (BNV) | payer MEDICAID, SELFPAY | END 2025-05-21 14:28 | PROVIDERS: Admitting Provider Psychiatry & Neurology Psychiatry; PCP Pediatrics; Responsible Provider Registered Nurse; Visit Provider Internal Medicine Cardiovascular Disease | DX: R00.0 Tachycardia, unspecified (principal) | CPT/HCPCS: 93010 ==

== ENCOUNTER 2025-05-20 16:50 | Outpatient (BNV) | payer MEDICAID, SELFPAY | END 2025-05-21 13:15 | PROVIDERS: Admitting Provider Psychiatry & Neurology Psychiatry; PCP Pediatrics; Responsible Provider Registered Nurse; Visit Provider Radiology Diagnostic Radiology | DX: M25.461 Effusion, right knee (principal) | CPT/HCPCS: 73560 ==

== ENCOUNTER → 2025-05-20 16:50 | Outpatient (BNV) | payer OTHER, SELFPAY | PROVIDERS: Admitting Provider Psychiatry & Neurology Psychiatry; PCP Pediatrics; Responsible Provider Registered Nurse; Visit Provider Registered Nurse | DX: F23 Brief psychotic disorder (principal) | CPT/HCPCS: 99232; 99499 ==

== ENCOUNTER → 2025-05-20 16:50 | Outpatient (BNV) | payer MEDICAID, SELFPAY | PROVIDERS: Admitting Provider Psychiatry & Neurology Psychiatry; PCP Pediatrics; Responsible Provider Registered Nurse; Visit Provider Nurse Practitioner Family | DX: F20.9 Schizophrenia, unspecified (principal) | CPT/HCPCS: 99221; 99499 ==